=== PATIENT | female | born 1975 | race Caucasian/White ===

== ENCOUNTER → 2020-07-11 10:11 | Outpatient (CLI) | payer OTHER, SELFPAY ==
[2020-07-11 12:10] LABS: Cancer Antigen 125 5.6 U/mL (0-35)
== END ==
PROVIDERS: PCP Family Medicine; Referring Provider Obstetrics & Gynecology; Visit Provider Obstetrics & Gynecology
DX: N83.292 Other ovarian cyst, left side (principal)
CPT/HCPCS: 36415; 86304

== ENCOUNTER → 2021-06-10 14:28 | Outpatient (CLI) | payer OTHER, SELFPAY ==
[2021-06-10 15:05] LABS: COVID19 -Nasal RAPID Negative (Negative)
== END ==
PROVIDERS: PCP Family Medicine; Referring Provider Obstetrics & Gynecology; Visit Provider Obstetrics & Gynecology
DX: Z01.812 Encounter for preprocedural laboratory examination (principal); Z20.822 Contact with and (suspected) exposure to COVID-19
CPT/HCPCS: 87635

== ENCOUNTER 2021-06-11 06:42 | Day surgery (SDC) | payer OTHER, SELFPAY ==
[2021-06-11] VITALS (12 sets, daily range): BP systolic 117–151; BP diastolic 68–88; PULSE 73–99; RESP 12–16; TEMP 36.3–36.9; O2SAT 96–99; BMI 40.3
--- NOTE | 2021-06-11 | PATH_ITS ---
[facility] Accession Number: [id number] . 01 Material submitted: . uterus - UTERUS,B/L FALL TUBES,B/O OVARIES, L OVARIAN CYST . 02 Diagnosis: Uterus, Bilateral Fallopian Tubes, Bilateral Ovaries, Left Ovarian Cyst, Laparoscopic Supracervical Hysterctomy with Bilateral Salpingo-oophorectomy (Weight 41 grams): Disordered proliferative endometrium; negative for glandular hyperplasia, cytologic atypia, or malignancy. Myometrium with patchy involvement by adenomyosis and with a small leiomyoma (3 mm). Uterine serosa with no significant histomorphologic abnormality. Larger described ovary with a benign multiloculated serous cystadenoma (30 mm) and with cystic corpus lutea and multiple benign cystic follicles. Smaller described ovary with a benign cystic corpus luteum (10 mm), a benign cystic follicle (7 mm) and with multiple scattered benign inclusion cysts (approximately 1 mm). Fallopian tube associated with smaller ovary with no significant histomorphologic abnormality; negative for atypia or malignancy. Fallopian tube associated with larger ovary with benign paratubal cysts (1-4 mm); negative for atypia or malignancy. [facility] 06/17/2021 1350 Local . 02 Electronically signed: . Jennifer Stanley MD, Pathologist NPI- [id number] . 01 Gross description: . The specimen is received in formalin, labeled uterus, bilateral fallopian tubes, bilateral ovaries, left ovarian cyst and consists of a 41-gram supracervically resected fragmented uterus measuring 7.5 x 5.0 x 3.0 cm in aggregate. The serosa is rodríguez-pink and smooth. Sectioning reveals a rodríguez herringbone endocervical mucosa. The rodríguez-pink endometrium measures 0.1 cm in thickness. The myometrium is rodríguez-pink and trabeculated, measuring 1.3 cm in thickness. Also received are two ovaries measuring 3.2 x 2.2 x 1.5 cm and 4.5 x 3.0 x 2.6 cm. The external surfaces are rodríguez and smooth to cerebriform. Sectioning reveals multiple rodríguez, serous-filled, smooth-walled cysts ranging from 0.2-3.0 cm, with no papillary excrescences identified. The fallopian tubes measure 4.0 cm in length by 1.0 cm in diameter and 5.0 cm in length by 0.5 cm in diameter. The serosa is rodríguez-pink and ragged with multiple paratubal cysts ranging from 0.1-0.4 cm. Sectioning reveals a rodríguez-pink mucosa and a stellate lumen measuring 0.3 cm in diameter. Manager Etl sections are submitted. . A1: Lower uterine segment. A2-A4: Manager Etl uterus. A5: Manager Etl smaller ovary. A6: Attached fallopian tube, sales representative trainee cross-sections and bisected fimbria. A7-A8: Manager Etl larger ovary. A9: Manager Etl attached fallopian tube, central cross section and bisected fimbria. ([id number]) /MRV 06/12/2021 1208 Local . 02 Pathologist provided ICD-10: N83.209, N92.1, D27.9 . 02 CPT . 545138 Performed at: 01 [facility] [address] [place] [address] [id number] MD Elder Pereyra MD Phone: [phone] Performed at: [facility] [address] [place] [address] [id number] MD Natividad Rebolledo MD Phone: [phone]
[2021-06-11] MEDS: LACTATED RINGERS 1,000 ML 100 ML IV ×2 (07:16→09:11)
--- NOTE | 2021-06-11 07:37 | PM.PREOP ---
Pre-operative Note COVID-19 COVID-19 status: Negative Result date/Date tested (Pos, Neg/Pending): 06/10/21 Interval Note History & Physical reviewed/Exam performed by Physician: Yes Changes to H&P: No H&P completed within 30 days and has changed as indicated here:: 06/10/21
[2021-06-11] MEDS: SCOPOLAMINE 1 PATCH TOP (08:00)
[2021-06-11] MEDS: CEFAZOLIN 2 GM/20 ML SYRINGE IV (08:05)
--- NOTE | 2021-06-11 08:30 | SUR.OPER ---
Lithotomy on padded OR bed. [place] Pad Positioner under torso. Head on pillow, arms padded and tucked at sides. Legs secured in padded yellow fins stirrups.
[2021-06-11] MEDS: ROPIVACAINE 0.2% PF 2 MG/ML 10ML AMP 20 ML INJ (08:48)
[2021-06-11] MEDS: BUPIVACAINE 0.5% (PF) 30 ML, EPINEPHrine 0.15 MG INJ (08:49)
--- NOTE | 2021-06-11 09:37 | PM.GYNOP.1 ---
Operative Date/Time/Diagnoses Date of procedure: 06/11/21 Time of procedure: 09:37 Pre-op diagnosis: Menometrorrhagia Complex left ovarian cyst Post-op diagnosis: same Procedure & Clinicians Procedure: Procedures Operation Date: 06/11/21 07:45 Actual Procedure Side Surgeon p Laparoscopic Supracervical Hysterectomy w/ bilateral salpingo-oophorectomy & IUD removal Eboni Melendez MD Indications: Menometrorrhagia Complex left ovarian cyst Surgeon: Eboni Melendez Automotive Specialty Technician: Jeff Liao Anesthesia Type: General and Local Operative Notes Findings: 7 week size anteverted uterus 3 cm complex left ovarian cyst Normal tubes bilaterally Gallbladder previously removed Appendix previously removed Normal liver Closure Type: primary Specimen(s): left tube & ovary, right tube & ovary and uterus Applied: catheter (Removed at the end of the case) Estimated blood loss (mL): 50 Blood products transfused: none Procedure in detail: The patient was taken to the operating room where she was placed in the dorsal supine position. After adequate general endotracheal anesthesia was achieved, she was placed in the dorsal lithotomy position, and prepped and draped in the usual sterile fashion. A timeout was performed. A bivalve speculum was placed into the vagina and the anterior lip of the cervix grasped with a single-tooth tenaculum. The Mirena IUD strings were grasped and it was removed without difficulty. The cervical os was sequentially dilated until the ZUMI uterine manipulator could pass easily into the endometrial cavity. The single-tooth tenaculum was removed from the anterior lip of the cervix, and the bivalve speculum was removed from the vagina. Attention was then turned to the abdomen where 6 mL of half percent Marcaine with epinephrine were injected in the umbilical fold. A 5 mm incision was made. The veress needle was placed into the peritoneal cavity, and its placement confirmed by aspiration and drop test. The veress needle was removed. A 5 mm trocar was placed without difficulty. 2 other incisions were made midway between the pubic symphysis and umbilicus after 5 mL of half percent Marcaine with epinephrine were injected. These were 5 mm incisions. Two, 5 mm trochars were placed under direct visualization. The right tube and ovary were grasped with an atraumatic grasper. Using the plasma kinetic with settings of 40 W the infundibulopelvic ligament was cauterized and cut. The cornua of the uterus was then grasped with an atraumatic grasper. The utero-ovarian ligaments were cauterized and cut. The round ligament and broad ligament were cauterized and cut with plasma kinetic. Hemostasis was achieved. The bladder flap was created using the plasma kinetic with cautery and cut skilled nursing across. The uterine arteries on the right side were extensively cauterized with plasma kinetic. All of this was repeated on the left side. The remainder of the bladder flap was created using the plasma kinetic, and the bladder taken down off the lower uterine segment and cervix. Using the [place], the cervix was amputated from the uterus 2 cm above the uterosacral ligaments, after the ZUMI uterine manipulator was removed from the uterus and a moistened sponge stick was placed in the vagina. There was a small amount of bleeding noted from the posterior edge of the cervix, and this was cauterized for hemostasis. 6 mL of half percent Marcaine with epinephrine were injected above the pubic symphysis. A 12mm incision was made. A 12 mm trocar was placed under direct visualization. A large endobag was placed through the suprapubic trocar. The uterus, tubes, and ovaries were placed into the Endobag. The uterus was morcellated in approximately 8 pieces. The tubes and ovaries were also removed from the Endobag. The Endobag was removed from the peritoneal cavity. The pelvis was copiously irrigated with warm normal saline. No bleeding was noted. 20 mL of 0.2% ropivacaine were placed over the pelvic pedicles. The instruments were removed from the abdomen. The CO2 was allowed to escape. The suprapubic incision was closed on the fascia with 0 Vicryl. Two sub cutaneous stitches were placed with 3-0 Vicryl to reapproximate the suprapubic incision. All of the incisions were closed with 4-0 Biosyn in a subcuticular fashion. Steri-Strips were placed. Allevyn dressings were placed over the incisions. The moistened sponge stick was removed from the vagina. Sponge, lap, and instrument counts were correct x 2. The patient tolerated the procedure well, was taken to PACU in stable condition. Complications: none Post-operative Condition: stable Disposition: PACU Plan for aftercare: Home after recovery
[2021-06-11] MEDS: HYDROMORPHONE 2 MG INJ IV ×2 (09:41→09:51)
[2021-06-11] MEDS: OXYCODONE/ACETAMINOPHEN 5/325 TABLET 1 TAB PO ×2 (10:10→10:43)
[2021-06-11] MEDS: hydrOXYzine 50 MG/ML INJ 25 MG IM (10:35)
== END 2021-06-11 11:03 | disposition home or self-care (01) ==
LOC: OR 06:46 → AC 08:09
PROVIDERS: PCP Family Medicine; Referring Provider Obstetrics & Gynecology; Visit Provider Obstetrics & Gynecology
PROC: 0UT94ZL Resection of Uterus, Supracervical, Percutaneous Endoscopic Approach (ICD-10-PCS; CPT 58542; principal; 2021-06-11 07:45)
DX: N92.1 Excessive and frequent menstruation with irregular cycle (principal); Z30.432 Encounter for removal of intrauterine contraceptive device; J45.909 Unspecified asthma, uncomplicated; E66.9 Obesity, unspecified; D25.9 Leiomyoma of uterus, unspecified; N83.8 Other noninflammatory disorders of ovary, fallopian tube and broad ligament; N83.10 Corpus luteum cyst of ovary, unspecified side; D27.9 Benign neoplasm of unspecified ovary
CPT/HCPCS: 58542; J0171; J0360; J0690; J1100; J1170; J1885; J2250; J2405; J2704; J2795; J3010; J3410